=== PATIENT | female | born 1970 | race African-American/Black ===

== ENCOUNTER 2022-08-19 00:53 | Day surgery (SDC) | payer OTHER, MEDICAID, SELFPAY ==
[2022-07-14 09:18] VITALS: BMI 27.0
[2022-08-15 11:55] VITALS: BMI 27.0
--- NOTE | 2022-08-15 11:55 | PC.NURSE ---
Spoke with patient and confirmed new date and time of procedure. Patient stated no new medical hx to add to her chart and no new medications have been started.
[2022-08-19 10:33] VITALS: BP 111/80; PULSE 68; RESP 18; TEMP 36.3; O2SAT 100; BMI 27.1
[2022-08-19] MEDS: LACTATED RINGERS 1,000 ML 150 ML IV CONT (10:41)
--- NOTE | 2022-08-19 10:45 | P.HP_ITS ---
History of Present Illness History of Present Illness Consent: Risks, benefits, and alternatives have been discussed and questions answered. Patient agrees to proceed with procedure. Chief complaint: neoplasm screening Narrative: Alysia Dubon is a 51 year old female Presents for screening colonoscopy. Patient's current weight appetite and bowel movements are normal. Patient denies abdominal pain. She has had no bleeding. Family history Si gnificant her mother may have had colon polyps. Review of Systems Review of Systems: Review of systems noncontributory. [facility] Social History Social History Smoking status: Never smoker Alcohol intake: current Alcohol use details: occasional Substance use type: does not use Living arrangements: with family Spiritual care concerns: No Meds Home Medications and Allergies Home Medications Medication Instructions Recorded Confirmed Type ferrous sulfate 325 mg (65 mg 325 mg PO DAILY 07/14/22 07/14/22 History iron) tablet valacyclovir 500 mg tablet 500 mg PO DAILY 07/14/22 07/14/22 History Allergies Allergy/AdvReac Type Severity Reaction Status Date / Time No Known Allergies Allergy Verified 07/14/22 09:20 Vital Signs Vital Signs - 24 hr 08/19/22 10:33 Temperature 97.4 F L Pulse Rate 68 Respiratory Rate 18 Blood Pressure 111/80 Pulse Oximetry 100 Oxygen Delivery Room Air Exam Narrative: Physical exam reveals patient to be alert. Vital signs stable. HEENT exam is unremarkable. Patient is anicteric. Lungs are clear to auscultation and percussion. Heart is without murmur or extra sounds. Abdomen bowel sounds present soft nontender with no organomegaly. Digital external rectal exam is normal. Assessment and Plan Assessment and plan (1) Encounter for screening colonoscopy: Code(s): Z12.11 - Encounter for screening for malignant neoplasm of colon Status: Acute Assessment and Plan: Patient presents today for neoplasia screening colonoscopy. Further recommendations may be given after endoscopy.
--- NOTE | 2022-08-19 10:56 | P.PNAN_ITS ---
Anes - Initial Pre Proc Eval Procedure: Operation Date: 08/19/22 11:30 Proposed Procedures p Screening Colonoscopy - Benny Wright MD Date/Time: 08/19/22 10:56 Surgeon: Benny Wright MD Pre Op Diagnosis: neoplasm screening Patient Data Age: 51 Gender: F Height: 1.68 m Weight: 76.3 kg Last Vital Signs Temp 97.4 F L 08/19/22 10:33 Pulse 68 08/19/22 10:33 Resp 18 08/19/22 10:33 BP 111/80 08/19/22 10:33 Pulse Ox 100 08/19/22 10:33 O2 Del Method Room Air 08/19/22 10:33 Allergies Allergy/AdvReac Type Severity Reaction Status Date / Time No Known Allergies Allergy Verified 07/14/22 09:20 Home Medications Medication Instructions Recorded Confirmed Type ferrous sulfate 325 mg (65 mg 325 mg PO DAILY 07/14/22 07/14/22 History iron) tablet valacyclovir 500 mg tablet 500 mg PO DAILY 07/14/22 07/14/22 History Patient hx anesthesia problems: none Family hx anesthesia problems: none Results Review: All pre-operative results and documents have been reviewed as part of the pre- operative evaluation. [facility] Social History Social History Smoking status: Never smoker Alcohol intake: current Alcohol use details: occasional Substance use type: does not use Living arrangements: with family Spiritual care concerns: No Anes - Eval Final PreProcedure Day of Procedure 08/19/22 10:56 Patient weight: normal Heart: regular rate and rhythm Lungs: clear to auscultation Airway: Mallampati scale class II Neurological: alert and oriented Last oral intake: >/= 8 hours ASA classification: II Emergent: no Anesthetic plan: proceed Anesthesia type and monitoring: general GIVS and standard monitoring Results Review: All pre-operative results and documents have been reviewed as part of the pre- operative evaluation. Informed Consent: The patient's anesthetic plan and its attendant risks and benefits were discussed with the patient/family/POA. Questions were solicited and answers provided to the satisfaction of the patient/family/POA.
[2022-08-19 11:15] VITALS: BP 122/75; PULSE 71; RESP 21; O2SAT 100
[2022-08-19 11:25] VITALS: BP 105/63; PULSE 77; RESP 17; O2SAT 97
[2022-08-19 11:35] VITALS: BP 110/64; PULSE 78; RESP 17; O2SAT 97
== END 2022-08-19 11:40 | disposition home or self-care (01) ==
PROVIDERS: Referring Provider Obstetrics & Gynecology Gynecology; Visit Provider Internal Medicine Gastroenterology
PROC: 0DJD8ZZ Inspection of Lower Intestinal Tract, Via Natural or Artificial Opening Endoscopic (ICD-10-PCS; CPT 45378; principal; 2022-08-19 11:30)
DX: Z12.11 Encounter for screening for malignant neoplasm of colon (principal); K64.8 Other hemorrhoids
CPT/HCPCS: 45378; J2704; J7120

== ENCOUNTER 2024-11-08 08:58 | Outpatient (CLI) | payer BC, SELFPAY ==
--- NOTE | ~2024-11-08 | US_ITS ---
EXAMINATION: US pelvic complete, 11/08/2024 9:04 CDT HISTORY: Retained tampon Comparison: None Technique: Duarte-scale and color Doppler images were obtained. Findings: Uterus: The uterus is anteverted measuring 11.9 x 7.5 x 8.3 cm, there are multiple fibroids identified the largest in the fundus 7.1 x 7.2 cm. . Endometrium 6 mm. Right Ovary:Right ovary 2.4 x 2.5 x 3.8 cm, no adnexal mass, normal flow. Left Ovary: Left ovary 4.4 x 2.8 x 2.6 cm, no adnexal mass, normal flow. Free Fluid: None Impression: Uterine fibroids detailed above. No gross foreign body identified. If symptoms persist CT recommended Reviewed, dictated and finalized at location A. Impression: Uterine fibroids detailed above. No gross foreign body identified. If symptoms persist CT recommended
== END 2024-11-08 08:59 | disposition home or self-care (01) ==
DX: T19.3XXA Foreign body in uterus, initial encounter (principal); D25.9 Leiomyoma of uterus, unspecified
CPT/HCPCS: 76856